=== PATIENT | female | born 1970 | race Caucasian/White ===

== ENCOUNTER 2017-05-17 07:30 | Inpatient (IN) | payer OTHER ==
[~2017-05-17] VITALS: Ht 167.6 cm; Wt 99.8 kg
== END 2017-05-21 17:46 | disposition home or self-care (01) | DRG 743 ==
LOC: O/R 05-19 05:42 → SURH 05-19 07:30 → EDBD 05-19 07:30 → SURH 05-19 14:45
PROVIDERS: Obstetrics & Gynecology; Surgery
PROC: 0DNN4ZZ Release Sigmoid Colon, Percutaneous Endoscopic Approach (ICD-10-PCS; 2017-05-19)
PROC: 0UT74ZZ Resection of Bilateral Fallopian Tubes, Percutaneous Endoscopic Approach (ICD-10-PCS; 2017-05-19)
PROC: 0UT94ZZ Resection of Uterus, Percutaneous Endoscopic Approach (ICD-10-PCS; principal; 2017-05-19 14:45)
PROC: 0UT24ZZ Resection of Bilateral Ovaries, Percutaneous Endoscopic Approach (ICD-10-PCS; 2017-05-19 14:45)
DX: N80.0 Endometriosis of uterus (principal); N80.1 Endometriosis of ovary; K66.0 Peritoneal adhesions (postprocedural) (postinfection)

== ENCOUNTER 2017-06-09 16:01 | Inpatient (IN) | payer OTHER ==
[~2017-06-09] VITALS: Ht 167.6 cm; Wt 95.3 kg
== END 2017-06-10 18:24 | disposition home or self-care (01) | DRG 921 ==
LOC: ER 16:01 → O/R 17:14 → OB/GYN 20:12
PROVIDERS: Obstetrics & Gynecology
PROC: 0UQG7ZZ Repair Vagina, Via Natural or Artificial Opening (ICD-10-PCS; principal; 2017-06-09 17:00)
DX: T81.32XA Disruption of internal operation (surgical) wound, not elsewhere classified, initial encounter (principal); N93.8 Other specified abnormal uterine and vaginal bleeding; N80.0 Endometriosis of uterus; Y83.8 Other surgical procedures as the cause of abnormal reaction of the patient, or of later complication, without mention of misadventure at the time of the procedure; Y92.89 Other specified places as the place of occurrence of the external cause